=== PATIENT | male | born 1965 | race American Indian/Alaskan Native ===

== ENCOUNTER 2020-02-13 23:22 | Emergency (ER) | payer SELFPAY ==
[2020-02-13] MEDS ORDERED: LIDOCAINE-MPF (1%) 10 MG/1 ML VIAL 5 ML INFILTRATI ONE (23:54)
[2020-02-13] MEDS ORDERED: SODIUM CHLORIDE IRRI 500 ML 500 ML IR ONE (23:59)
[2020-02-14 00:34] VITALS: BP 144/95
--- NOTE | 2020-02-14 00:34 | Emergency Department Report ---
ED Laceration HPI - HPI Chief Complaint: Wound/Laceration Stated Complaint: WORK RELATED ACC RT HAND LACERATION Time Seen by Provider: 02/14/20 00:24 Occurred When: Today (Around 1:30 PM utilizing his circular saw) Location: Upper Extremity Severity: mild, moderate Tetanus Status: Up to Date (2 years ago) Laceration Symptoms: Yes Pain, No Foreign Body Sensation, No Numbness, No Weakness ED Review of Systems ROS: Stated complaint: WORK RELATED ACC RT HAND LACERATION Other details as noted in HPI Comment: All other systems reviewed and negative ED Past Medical Hx - Past Medical History Previous Medical History?: No - Social History Smoking Status: Current Every Day Smoker Substance Use Type: Alcohol, Marijuana - Medications Home Medications: Home Medications Medication Instructions Recorded Confirmed Last Taken Type Diclofenac Dr [Voltaren Dr] 75 mg PO Q12H #30 tablet 05/15/14 Unknown Rx HYDROcodone/APAP 10-325 [[place] 1 each PO Q6HR PRN #20 tablet 05/15/14 Unknown Rx 10/325] Prednisone [Prednisone 10 mg 10 mg PO .TAPER #1 tab.ds.pk 05/15/14 Unknown Rx (6-Day Pack, 21 Tabs)] Laceration Physical Exam - Exam General: Vital signs noted. No distress. Alert and acting appropriately. 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 4-0 Prolene was placed in similar fashion x4 for wound closure with good approximation no complications were noted and the procedure was tolerated well estimated blood loss was less than 2 cc. Critical care attestation.: If time is entered above; I have spent that time in minutes in the direct care of this critically ill patient, excluding procedure time. ED Disposition Clinical Impression: Finger laceration Disposition: DC- TO HOME OR SELFCARE Is pt being admited?: No Does the pt Need Aspirin: No Condition: Stable Instructions: Laceration Care, Adult, Sutures, [place], or Adhesive Wound Closure, [id number] Additional Instructions: Please follow-up in 10 days to be evaluated for possible suture removal Referrals: PRIMARY CARE [Primary Care Provider] - 3-5 Days [facility] [Provider Group] - 3-5 Days
== END 2020-02-14 01:15 | disposition home or self-care (01) ==
LOC: ED 23:22
DX: S61.011A Laceration without foreign body of right thumb without damage to nail, initial encounter (principal); F17.200 Nicotine dependence, unspecified, uncomplicated; F12.90 Cannabis use, unspecified, uncomplicated; Z79.899 Other long term (current) drug therapy; X58.XXXA Exposure to other specified factors, initial encounter; Y93.89 Activity, other specified; Y92.89 Other specified places as the place of occurrence of the external cause; Y99.0 Civilian activity done for income or pay
CPT/HCPCS: 99282